=== PATIENT | male | born 1975 | race African-American/Black ===

== ENCOUNTER 2020-07-16 13:49 | Emergency (ER) | payer SELFPAY ==
[~2020-07-16] VITALS: Ht 167.6 cm; Wt 76.8 kg
[2020-07-16 14:53] VITALS: BP 137/79
--- NOTE | 2020-07-16 14:58 | PHYS DOC ---
Past Medical History Past Medical History: Asthma Past Surgical History: No Surgical History Smoking Status: Never Smoker Alcohol Use: Occasionally General Adult EDM: Chief Complaint: ASTHMA HPI: HPI: Patient is a 44 year old male who presented to ER today for evaluation of trouble breathing, cough, wheezing for 4 days. Patient has history of asthma, denies smoking denies any fever. Patient has been coughing up yellow sputum. Patient denies being exposed to anybody who tested positive for COVID-19. Patient denies any chest pain. Patient denies any abdominal pain, no nausea vo miting. Review of Systems: Review of Systems: Constitutional: Denies fever or chills. [] Eyes: Denies change in visual acuity. [] HENT: Denies nasal congestion or sore throat. [] Respiratory: Postive for cough or shortness of breath. [] Cardiovascular: Denies chest pain or edema. [] GI: Denies abdominal pain, nausea, vomiting, bloody stools or diarrhea. [] : Denies dysuria. [] Musculoskeletal: Denies back pain or joint pain. [] Integument: Denies rash. [] Neurologic: Denies headache, focal weakness or sensory changes. [] Endocrine: Denies polyuria or polydipsia. [] Lymphatic: Denies swollen glands. [] Psychiatric: Denies depression or anxiety. [] Heart Score: Risk Factors: Risk Factors: DM, Current or recent (<one month) smoker, HTN, HLP, family history of CAD, obesity. Risk Scores: Score 0 - 3: 2.5% MACE over next 6 weeks - Discharge Home Score 4 - 6: 20.3% MACE over next 6 weeks - Admit for Clinical Observation Score 7 - 10: 72.7% MACE over next 6 weeks - Early Invasive Strategies Current Medications: Current Medications Medications (Trade) Dose Ordered Sig/Jenna Start Time Stop Time Status Last Admin Dose Admin Albuterol/ Ipratropium (Duoneb) 3 ml 1X ONCE 07/16/20 15:00 07/16/20 15:01 UNV Prednisone (Prednisone) 60 mg 1X ONCE 07/16/20 15:00 07/16/20 15:01 UNV Allergies: Allergies: Allergies Coded Allergies Type Severity Reaction Last Updated Verified No Known Drug Allergies 07/16/20 No Physical Exam: PE: Constitutional: Well developed, well nourished, no acute distress, non-toxic appearance. [] HENT: Normocephalic, atraumatic, bilateral external ears normal, oropharynx moist, no oral exudates, nose normal. [] Eyes: PERRLA, EOMI, conjunctiva normal, no discharge. [] Neck: Normal range of motion, no tenderness, supple, no stridor. [] Cardiovascular:Heart rate regular rhythm, no murmur [] Lungs & Thorax: wheezing expiratory and inspiratory to auscultation. NO RESPIRATORY DISTRESS Abdomen: Bowel sounds normal, soft, no tenderness, no masses, no pulsatile masses. [] Skin: Warm, dry, no erythema, no rash. [] Back: No tenderness, no CVA tenderness. [] Extremities: No tenderness, no cyanosis, no clubbing, ROM intact, no edema. [] Neurologic: Alert and oriented X 3, normal motor function, normal sensory function, no focal deficits noted. [] Psychologic: Affect normal, judgement normal, mood normal. [] Current Patient Data: Vital Signs: Vital Signs Date Time Temp Pulse Resp B/P (MAP) Pulse Ox O2 Delivery O2 Flow Rate FiO2 07/16/20 14:53 97.8 86 22 137/79 (98) 94 Room Air 97.8 EKG: EKG: [] Radiology/Procedures: Radiology/Procedures: [][facility] [address] [place] [address] IMAGING REPORT Signed PATIENT: TETO SHAH ACCOUNT: [id number] : 1975 LOCATION: ER AGE: 44 SEX: M EXAM STATUS: REG ER ORD. PHYSICIAN: ZEUS HARRIS DO REASON: COUGH, WHEEZING FOR 4 DAYS. HX OF ASTHMA PROCEDURE: CHEST PA & LATERAL EXAM: CHEST PA LATERAL 07/16/2020 2:52 PM CLINICAL INDICATION: Cough and wheezing for 4 days, history of asthma COMPARISON: None TECHNIQUE: PA and lateral views of the chest FINDINGS: The heart and mediastinum are normal. Lungs are well-expanded and clear. No consolidation, pleural effusion, or pneumothorax. Pulmonary vascularity is normal. The thoracic skeleton is intact. IMPRESSION: Normal chest radiograph. Electronically signed by: Charis Sands MD (07/16/2020 3:27 PM) [id number] DICTATED and SIGNED BY: CHARIS SANDS MD DATE: 07/16/20 1527 Course & Med Decision Making: Course & Med Decision Making Pertinent Labs and Imaging studies reviewed. (See chart for details) Patient is a 44-year-old male who was evaluated in ER due to cough and trouble breathing. Patient has history of asthma, patient was given prednisone and DuoNeb treatment in the ER, he feels much better, x-ray of his chest did not show any acute problem. Patient will be discharged home Dragon Disclaimer: Dragon Disclaimer: This electronic medical record was generated, in whole or in part, using a voice recognition dictation system. Departure Departure Impression: Primary Impression: Asthmatic bronchitis Disposition: 01 HOME, SELF-CARE Condition: IMPROVED Referrals: NO PCP (PCP) Patient Instructions: Asthma, Adult Additional Instructions: [facility] [address] [place] [address] [facility] [address] [place] [address] [facility] [address] [facility] [place] [address] [facility] [address] [place] [address] [facility] [address] [place] [address] [facility] [address] [place] [address] [facility] [address] [place] [address] [facility] [place] [address] [place] [address] [facility] [address] [place] [address] [facility] [address] [place] [address] Scripts Albuterol Sulfate (Proair Hfa) 8.5 Gm Hfa.aer.ad 1 PUFF INH PRN Q6HRS PRN for SHORTNESS OF BREATH for 30 Days, #1 INHALER Prov: ZEUS HARRIS DO 07/16/20 Prednisone (PREDNISONE) 20 Mg Tablet 20 MG PO DAILY for 10 Days, #10 TAB Prov: ZEUS HARRIS DO 07/16/20 Justicifation of Admission Dx: Justifications for Admission: Justification of Admission Dx: N/A ZEUS HARRIS DO Jul 16, 2020 14:58
[2020-07-16] MEDS ORDERED: IPRATRPIUM/ALBUTEROL 0.5/2.5MG 3 ML NEBU. NEB ONE (15:00)
[2020-07-16] MEDS ORDERED: predniSONE 10 MG TABLET PO ONE (15:00)
--- NOTE | 2020-07-16 15:30 | RAD ---
EXAM: CHEST PA LATERAL 07/16/2020 2:52 PM CLINICAL INDICATION: Cough and wheezing for 4 days, history of asthma COMPARISON: None TECHNIQUE: PA and lateral views of the chest FINDINGS: The heart and mediastinum are normal. Lungs are well-expanded and clear. No consolidation, pleural effusion, or pneumothorax. Pulmonary vascularity is normal. The thoracic skeleton is intact. IMPRESSION: Normal chest radiograph. Electronically signed by: Charis Sands MD (07/16/2020 3:27 PM) [id number]
[2020-07-16] MEDS ORDERED: ALBU2.5V8 INH (16:20)
[2020-07-16] MEDS ORDERED: PRED20TA PO (16:20)
== END 2020-07-16 16:40 | disposition home or self-care (01) ==
LOC: ER 13:49
DX: J45.909 Unspecified asthma, uncomplicated (principal)
CPT/HCPCS: 71046; 94640; 99283; J7512